=== PATIENT | female | born 1995 | race Caucasian/White ===

== ENCOUNTER 2021-08-29 05:15 | Observation (INO) ==
[2021-08-29] MEDS ORDERED: diphenhydrAMINE 50 MG/ML VIAL IV STA ×2 (05:39→06:52)
[2021-08-29] MEDS ORDERED: FAMOTIDINE 20MG IV PUSH 20 MG/5 ML SYR IV STA (05:39)
--- NOTE | 2021-08-29 05:45 | Emergency Department Note ---
History of Present Illness General Chief complaint: Allergic Reaction Stated complaint: CHEST PAIN W/ HIVES Time Seen by Provider: 08/29/21 05:28 Source: patient Mode of arrival: ambulatory Limitations: no limitations History of Present Illness Provider complaint: Allergic reaction Onset (ago): hour(s) Maximum Pain Intensity: 5 Treatments prior to arrival: other This is a 26-year-old female presents emergency department due to concern for al lergic reaction. Over the last 2 weeks patient has had intermittent urticaria and itching and has been seen in the emergency room. She was prescribed an EpiPen, is now into her second course of prednisone and taking Pepcid daily in addition to Claritin. Patient is scheduled to have a video appointment with an otolaryngology nurse on September 18. Patient states she woke up tonight and had facial swelling and a sense of throat tightness and trouble breathing so she took her EpiPen and came to the emergency room. Patient states she does feel mild chest discomfort at this time although believes the other symptoms are slowly improving. She states that is has been unclear what is contributing to her reactions. Family history of significant allergic reactions. No new medications. No change in personal hygiene products. She denies any recent illness or travel. Patient states she has been seen by her PCP and seen in the ER 3 times with progressively worsening symptoms. No fam hx of anaphylaxis. Pt seen during a time of high acuity and national emergency pandemic while wearing PPE. Home Medications Medication Instructions Recorded Confirmed Type buspirone 10 mg tablet 10 mg PO BID 08/21/21 08/29/21 History norgestimate 0.18 mg/0.215 mg/0.25 1 tab PO DAILY@1830 08/21/21 08/29/21 History mg-ethinyl estradiol 25 mcg tablet (Dbt-Ro-Rdnaezmy) prednisone 20 mg tablet 20 mg PO BID 08/21/21 08/29/21 History venlafaxine 150 mg 150 mg PO QAM 08/21/21 08/29/21 History capsule,extended release 24 hr epinephrine 0.3 mg/0.3 mL 0.3 mg IM Q4H PRN #2 ea 08/27/21 08/29/21 Rx injection, auto-injector (EpiPen 2-Lefty) famotidine 20 mg tablet (Pepcid AC) 20 mg PO BID 14 Days #28 tab 08/27/2108/17 Rx prednisone 20 mg tablet 60 mg PO DAILY 4 Days #12 tab 08/27/21 08/29/21 Rx Allergies Allergy/AdvReac Type Severity Reaction Status Date / Time No Known Allergies Allergy Unverified 08/29/21 06:40 Past Med/Surg History Medical History No significant past medical history Surgical History No significant past surgical history Social History Smoking Status: Never smoker Hx Alcohol Use: Yes Alcohol type: beer Hx Substance Use: No Preferred Language: Micronesian Communication Ability: Effective Public Health Veterinarian Required: No Beliefs That Will Affect Care: None marital status: Single Current Living Situation: Parent and Family current occupational status: employed Other Information That Helps Us Care for You: No Feels Safe at Home: Yes Safety Concerns: Feels Safe At This Time Assistive Devices: None Review of Systems A total of 10 systems reviewed and were otherwise negative All systems reviewed & are unremarkable except as noted in HPI & below Physical Exam Vital Signs Vital Signs - 24 hr 08/29/21 05:24 08/29/21 05:28 08/29/21 05:31 Temperature 36.5 C Temperature Source Oral Pulse Rate 117 H 114 H Pulse Rate [Apical] Pulse Rate from SpO2 Sensor 115 H Respiratory Rate 26 H 21 Respiratory Effort / Characteristics Non-Labored Spontaneous Short of Breath SOB on Exertion SOB on Exertion Respiratory Depth Normal Normal Respiratory Pattern Regular Regular Blood Pressure 116/79 Blood Pressure [Left Arm] Blood Pressure Mean 91 Blood Pressure Mean [Left Arm] Pulse Oximetry 100 100 Oxygen Delivery Method Room Air Room Air Sepsis Recent Fever Within 48 Hours No Sepsis New/Unexplained Change in Mental Status No Sepsis Action Taken by Nursing No Action Required Pulse Oximetry Post Tiitration 08/29/21 05:33 08/29/21 06:00 08/29/21 06:30 Temperature Temperature Source Pulse Rate 104 H 101 H Pulse Rate [Apical] 118 H Pulse Rate from SpO2 Sensor 102 H 103 H Respiratory Rate 20 13 18 Respiratory Effort / Characteristics Respiratory Depth Normal Respiratory Pattern Blood Pressure 103/64 98/63 L Blood Pressure [Left Arm] 119/79 Blood Pressure Mean 77 74 Blood Pressure Mean [Left Arm] 92 Pulse Oximetry 100 100 100 Oxygen Delivery Method Room Air Sepsis Recent Fever Within 48 Hours Sepsis New/Unexplained Change in Mental Status Sepsis Action Taken by Nursing Pulse Oximetry Post Tiitration 100 08/29/21 07:00 08/29/21 07:02 08/29/21 07:12 Temperature Temperature Source Pulse Rate 100 H 97 H Pulse Rate [Apical] 101 H Pulse Rate from SpO2 Sensor 99 H 95 H Respiratory Rate 17 24 18 Respiratory Effort / Characteristics Respiratory Depth Respiratory Pattern Blood Pressure 119/66 Blood Pressure [Left Arm] 119/66 Blood Pressure Mean 83 Blood Pressure Mean [Left Arm] 83 Pulse Oximetry 100 100 100 Oxygen Delivery Method Room Air Sepsis Recent Fever Within 48 Hours Sepsis New/Unexplained Change in Mental Status Sepsis Action Taken by Nursing Pulse Oximetry Post Tiitration 08/29/21 07:30 08/29/21 08:00 08/29/21 08:01 Temperature Temperature Source Pulse Rate 101 H 99 H Pulse Rate [Apical] 97 H Pulse Rate from SpO2 Sensor 102 H 97 H Respiratory Rate 20 25 H 22 Respiratory Effort / Characteristics Respiratory Depth Respiratory Pattern Blood Pressure 108/62 105/75 Blood Pressure [Left Arm] 105/75 Blood Pressure Mean 77 85 Blood Pressure Mean [Left Arm] 85 Pulse Oximetry 100 99 100 Oxygen Delivery Method Room Air Sepsis Recent Fever Within 48 Hours Sepsis New/Unexplained Change in Mental Status Sepsis Action Taken by Nursing Pulse Oximetry Post Tiitration 08/29/21 08:30 08/29/21 09:00 08/29/21 09:30 Temperature Temperature Source Pulse Rate 104 H 103 H 90 Pulse Rate [Apical] 101 H Pulse Rate from SpO2 Sensor 104 H 101 H 89 Respiratory Rate 18 23 22 Respiratory Effort / Characteristics Respiratory Depth Respiratory Pattern Blood Pressure 105/54 L 101/59 L 102/50 L Blood Pressure [Left Arm] 101/59 L Blood Pressure Mean 71 73 67 Blood Pressure Mean [Left Arm] 73 Pulse Oximetry 98 97 98 Oxygen Delivery Method Room Air Sepsis Recent Fever Within 48 Hours Sepsis New/Unexplained Change in Mental Status Sepsis Action Taken by Nursing Pulse Oximetry Post Tiitration 08/29/21 10:00 08/29/21 10:30 08/29/21 11:00 Temperature Temperature Source Pulse Rate 85 80 86 Pulse Rate [Apical] 87 Pulse Rate from SpO2 Sensor 87 81 86 Respiratory Rate 21 18 17 Respiratory Effort / Characteristics Respiratory Depth Respiratory Pattern Blood Pressure 99/59 L 103/57 L 97/59 L Blood Pressure [Left Arm] 99/59 L Blood Pressure Mean 72 72 71 Blood Pressure Mean [Left Arm] 72 Pulse Oximetry 97 97 98 Oxygen Delivery Method Room Air Sepsis Recent Fever Within 48 Hours Sepsis New/Unexplained Change in Mental Status Sepsis Action Taken by Nursing Pulse Oximetry Post Tiitration GENERAL: alert, well appearing, well nourished, no distress, non-toxic, no obvi ous facial swelling or facial urticaria EYE EXAM: normal conjunctiva, PERRL and EOM's grossly intact OROPHARYNX: no exudate, no erythema, lips, buccal mucosa, and tongue normal and mucous membranes are moist, no obvious lip or facial swelling, uvula midline NECK: supple, no nuchal rigidity, no adenopathy, non-tender, no stridor LUNGS: Clear to auscultation. Normal chest wall mechanics, no w/r/r, tachypnea, no increased work of breathing HEART: no murmurs, S1 normal and S2 normal ABDOMEN: abdomen soft, non-tender, normo-active bowel sounds, no masses, no rebound or guarding. BACK: Back is symmetrical on inspection and there is no deformity, no midline tenderness, no CVA tenderness. SKIN: No petechiae, no bruising, generalized urticaria noted sparing the face UPPER EXTREMITIES: upper extremities are grossly normal. FROM, nml pulses b/l. LOWER EXTREMITIES: No pitting edema. FROM, nml pulses b/l. NEURO EXAM: Normal sensorium, cranial nerves II-XII grossly intact, normal speech, no gross weakness of arms, no gross weakness of legs. Gross sensation intact. Course Course 0650: Patient states she is still symptomatic at this time. No significant improvement after initial medications. 0748: Pt states still no improvement in symptoms. Will give epi IM. Administered Medications Buspirone HCl (Buspirone 5 Mg Tab) 10 mg PO BID KHALIDA Stop: 09/28/21 20:59 Last Admin: 08/29/21 21:04 Dose: 10 mg Documented by: [id number] Cetirizine HCl (Cetirizine Hcl 10 Mg Tablet) 10 mg PO HS KHALIDA Stop: 09/28/21 20:59 Last Admin: 08/29/21 21:04 Dose: 10 mg Documented by: [id number] Famotidine (Famotidine 20 Mg Tab) 20 mg PO BID KHALIDA Stop: 09/28/21 20:59 Last Admin: 08/29/21 21:04 Dose: 20 mg Documented by: [id number] Hydrocortisone Sodium (Succinate 40 mg/ Syringe) 0.8 mls @ 4 mls/min IV Q8H KHALIDA Stop: 09/28/21 13:59 Last Admin: 08/29/21 21:04 Dose: 4 mls/min Documented by: [id number] Admin: 08/29/21 14:40 Dose: 4 mls/min Documented by: [id number] Miscellaneous (Uvi-Qj-Zuhwuqne -Patient's Own Oral Contraceptive) 1 ea PO QD KHALIDA Stop: 09/28/21 18:29 Last Admin: 08/29/21 17:38 Dose: 1 ea Documented by: [id number] Discontinued Medications Cetirizine HCl (Cetirizine Hcl 10 Mg Tablet) 10 mg PO NOW ONE Stop: 08/29/21 07:52 Last Admin: 08/29/21 07:57 Dose: 10 mg Documented by: [id number] Dexamethasone Sodium Phosphate (DexamethasonePf 10 Mg/Ml Vial) 10 mg IV NOW ONE Stop: 08/29/21 06:53 Last Admin: 08/29/21 07:00 Dose: 10 mg Documented by: [id number] Diphenhydramine HCl (Diphenhydramine 50 Mg/Ml Vial) 25 mg IV NOW STA Stop: 08/29/21 05:40 Last Admin: 08/29/21 05:47 Dose: 25 mg Documented by: [id number] Diphenhydramine HCl (Diphenhydramine 50 Mg/Ml Vial) 25 mg IV NOW STA Stop: 08/29/21 06:53 Last Admin: 08/29/21 06:59 Dose: 25 mg Documented by: [id number] Epinephrine HCl (Epinephrine Adult Auto-Inject 0.3 Mg Syr) 0.3 mg IM NOW STA Stop: 08/29/21 07:52 Last Admin: 08/29/21 07:58 Dose: 0.3 mg Documented by: [id number] Famotidine (Pepcid 20mg Iv Push) 20 mg in 5 mls @ 2.5 mls/min IV NOW STA Stop: 08/29/21 05:40 Last Admin: 08/29/21 05:47 Dose: 2.5 mls/min Documented by: [id number] Sodium Chloride (Nss 1000ml) 1,000 mls @ 250 mls/hr IV .Q4H KHALIDA Stop: 09/28/21 05:44 Last Admin: 08/29/21 13:20 Dose: Not Given Documented by: [id number] Infusion: 08/29/21 10:27 Dose: 0 mls/hr Documented by: [id number] Admin: 08/29/21 05:47 Dose: 250 mls/hr Documented by: [id number] Medical Decision Making Differential Diagnosis Differential diagnosis includes but is not limited to anaphylaxis, generalized allergic reaction, medication reaction, urticaria, contact dermatitis, scarlet fever, Sadler-Pancho syndrome, Toxic Epidermal necrolysis Medical Records Attestation: I reviewed the patient's medical records. Home Medications Current Medication List: was personally reviewed by me Laboratory Data Attestation: I reviewed the patient's lab results. Result diagrams: 08/29/21 08:23 08/29/21 08:23 Lab Results 08/29/21 08/29/21 08/29/21 Range/Units 08:23 08:23 08:23 WBC 12.08 H (4.8-10.8) K/uL RBC 4.19 L (4.2-5.4) M/uL Hgb 13.2 (12.0-16.0) g/dL Hct 39.3 (37-47) % MCV 93.8 (80-100) fL MCH 31.5 (25-34) pg MCHC 33.6 (32-36) g/dL RDW Std Deviation 46.4 H (36.4-46.3) fL RDW Coeff of Cosme 13.5 (11.5-14.5) % Plt Count 246 (130-400) K/uL MPV 10.0 (7.4-10.4) fL Immature Gran % (Auto) 0.2 % Neut % (Auto) 82.9 % Lymph % (Auto) 12.7 % [place] % (Auto) 4.1 % Eos % (Auto) 0.0 % Baso % (Auto) 0.1 % Neut # (Auto) 10.00 H (1.4-6.5) K/uL Lymph # (Auto) 1.54 (1.2-3.4) K/uL [place] # (Auto) 0.50 (0.11-0.59) K/uL Eos # (Auto) 0.00 (0-0.5) K/uL Baso # (Auto) 0.01 (0-0.2) K/uL Immature Gran # (Auto) 0.03 H (0.00-0.02) K/uL ESR (0-20) mm/hr Sodium 138 (136-145) mmol/L Potassium 3.6 (3.5-5.1) mmol/L Chloride 109 H (98-107) mmol/L Carbon Dioxide 24 (21-32) mmol/L Anion Gap 5 (3-11) BUN 14 (6-23) mg/dl Creatinine 0.73 (0.6-1.2) mg/dl Est Cr Clr Drug Dosing 113.1 ml/min Est GFR ( Amer) 129.9 ml/min Est GFR (Non-Af Amer) 112.1 ml/min BUN/Creatinine Ratio 19.2 (10-20) Glucose 110 H (70-99(Fasting)) mg/dl Calcium 7.9 L (8.5-10.1) mg/dl Total Bilirubin 0.3 (0.2-1.0) mg/dl AST 12 L (13-39) U/L ALT 10 (7-52) U/L Alkaline Phosphatase 32 L (34-104) U/L Troponin I High Sens 4.5 (0-14) pg/ml Total Protein 5.8 L (6.0-8.3) gm/dl Albumin 3.4 (3.4-5.0) gm/dl Globulin 2.4 L (2.5-4.0) gm/dl Albumin/Globulin Ratio 1.4 (0.9-2) HCG, Qual Negative (Negative) SARS-CoV-2 (PCR) (Negative) Influenza Type A (PCR) (Neg) Influenza Type B (PCR) (Neg) RSV (RT-PCR) (Neg) 08/29/21 08/29/21 Range/Units 08:23 08:32 WBC (4.8-10.8) K/uL RBC (4.2-5.4) M/uL Hgb (12.0-16.0) g/dL Hct (37-47) % MCV (80-100) fL MCH (25-34) pg MCHC (32-36) g/dL RDW Std Deviation (36.4-46.3) fL RDW Coeff of Cosme (11.5-14.5) % Plt Count (130-400) K/uL MPV (7.4-10.4) fL Immature Gran % (Auto) % Neut % (Auto) % Lymph % (Auto) % [place] % (Auto) % Eos % (Auto) % Baso % (Auto) % Neut # (Auto) (1.4-6.5) K/uL Lymph # (Auto) (1.2-3.4) K/uL [place] # (Auto) (0.11-0.59) K/uL Eos # (Auto) (0-0.5) K/uL Baso # (Auto) (0-0.2) K/uL Immature Gran # (Auto) (0.00-0.02) K/uL ESR 7 (0-20) mm/hr Sodium (136-145) mmol/L Potassium (3.5-5.1) mmol/L Chloride (98-107) mmol/L Carbon Dioxide (21-32) mmol/L Anion Gap (3-11) BUN (6-23) mg/dl Creatinine (0.6-1.2) mg/dl Est Cr Clr Drug Dosing ml/min Est GFR ( Amer) ml/min Est GFR (Non-Af Amer) ml/min BUN/Creatinine Ratio (10-20) Glucose (70-99(Fasting)) mg/dl Calcium (8.5-10.1) mg/dl Total Bilirubin (0.2-1.0) mg/dl AST (13-39) U/L ALT (7-52) U/L Alkaline Phosphatase (34-104) U/L Troponin I High Sens (0-14) pg/ml Total Protein (6.0-8.3) gm/dl Albumin (3.4-5.0) gm/dl Globulin (2.5-4.0) gm/dl Albumin/Globulin Ratio (0.9-2) HCG, Qual (Negative) SARS-CoV-2 (PCR) NEGATIVE (Negative) Influenza Type A (PCR) Negative (Neg) Influenza Type B (PCR) Negative (Neg) RSV (RT-PCR) Negative (Neg) Imaging Data Radiologist's Impression: Chest X-Ray 08/29/21 05:39 XR chest 1V portable HISTORY: 26 years-old Female chest pain acute atypical chest pain COMPARISON: None TECHNIQUE: AP view of the chest FINDINGS: The cardiomediastinal and hilar silhouettes are within normal limits. No pneumo thorax, pleural effusion, airspace consolidation or overt pulmonary edema. Bones of the chest appear grossly intact. Cholecystectomy. IMPRESSION: No acute process. ACT 112: Negative or not required by law. The above report was generated using voice recognition software. It may contain grammatical, syntax or spelling errors. Electronically signed by: Tyron Petty M.D. 08/29/2021 6:38 AM ECG Data Attestation: I personally reviewed and interpreted this ECG as follows: Indication: + chest pain Rate (beats per minute): 112 Rhythm: + sinus tachycardia ECG Intervals/blocks: + Normal QRS and + Normal QT ECG [place]: + Normal ECG ST segments: + Normal ST segments MDM Narrative An order was placed for continuous cardiac monitoring. The monitor shows a rate of _102_ with sinus tachycardia_ rhythm. This is a 26-year-old female who presents emergency department for the third time due to worsening allergic reaction/anaphylactic symptoms. Patient with complaints of throat tightness, difficulty breathing, and chest pain along with her diffuse urticaria. No obvious facial swelling or angioedema. Patient is already taking H2 and H1 blockers and steroids at home. Patient used her EpiPen prior to arrival. Despite additional medications here in the emergency room she did not have any significant improvement of symptoms and so a second dose of IM epi was given. Due to persistent symptoms requiring additional and ongoing treatment without marked improvement and no identifiable etiology at this time, I discussed additional inpatient evaluation management her, she and mother verbalized understanding and were in agreement with plan. Patient was afebrile and remained hemodynamically stable in the emergency room. Basic labs added as a precaution. Chest x-ray and EKG had been reassuring. I do not suspect occult cardiac or pulmonary etiology of her symptoms, I feel they are more likely to be related to her allergic reaction. Prior tryptase level during her first visit was negative. Patient has not yet been able to follow-up with allergy/immunolo gy. Impression & Plan Anaphylaxis, Urticaria, Allergic reaction Discharge Plan Visit Data Chief Complaint: Allergic Reaction Stated Complaint: CHEST PAIN W/ HIVES ED Provider: Diane Cornejo Discharge Problem: Anaphylaxis, Urticaria, Allergic reaction Patient Disposition: Admitted As Inpatient Discharge Instructions Interventions: ED Discharge Assessment Last Done: 08/29/21 12:20 Discharge Problem: Anaphylaxis Qualifiers: Encounter type: initial encounter Qualified Code(s): T78.2XXA - Anaphylactic shock, unspecified, initial encounter Allergic reaction Qualifiers: Encounter type: subsequent encounter Qualified Code(s): T78.40XD - Allergy, unspecified, subsequent encounter
[2021-08-29] MEDS: SODIUM CHLORIDE 0.9% 1000ML 1,000 ML IV SCH ×2 (05:47→13:20)
--- NOTE | 2021-08-29 06:39 | XRay Report ---
XR chest 1V portable HISTORY: 26 years-old Female chest pain acute atypical chest pain COMPARISON: None TECHNIQUE: AP view of the chest FINDINGS: The cardiomediastinal and hilar silhouettes are within normal limits. No pneumothorax, pleural effusi on, airspace consolidation or overt pulmonary edema. Bones of the chest appear grossly intact. Cholec ystectomy. IMPRESSION: No acute process. ACT 112: Negative or not required by law. The above report was generated using voice recognition software. It may contain grammatical, syntax o r spelling errors. Electronically signed by: Tyron Petty M.D. 08/29/2021 6:38 AM
[2021-08-29] MEDS ORDERED: dexAMETHasone**PF** 10 MG/ML VIAL IV ONE (06:52)
[2021-08-29] MEDS ORDERED: CETIRIZINE HCL 10 MG TABLET PO ONE (07:51)
[2021-08-29] MEDS ORDERED: EPINEPHrine ADULT AUTO-INJECT 0.3 MG SYR IM STA (07:51)
[2021-08-29 08:42] LABS: Basophils # (auto) 0.01 K/uL (0-0.2); Basophils % (auto) 0.1 %; Hematocrit (blood only) 39.3 % (37-47); Hemoglobin 13.2 g/dL (12.0-16.0); Immature Granulocytes # (auto) 0.03 K/uL (0.00-0.02); Immature Granulocytes % (auto) 0.2 %; Lymphocytes # (auto) 1.54 K/uL (1.2-3.4); Lymphocytes % (auto) 12.7 %; Mean Corpuscular Hemoglobin 31.5 pg (25-34); Mean Corpuscular Hgb Conc 33.6 g/dL (32-36); Mean Corpuscular Volume 93.8 fL (80-100); Monocytes % (auto) 4.1 %; Neutrophils % (auto) 82.9 %; Platelet Count 246 K/uL (130-400); RDW Coefficient of Variation 13.5 % (11.5-14.5); RDW Standard Deviation 46.4 fL (36.4-46.3); Red Blood Count 4.19 M/uL (4.2-5.4); White Blood Count 12.08 K/uL (4.8-10.8)
[2021-08-29 09:13] LABS: Albumin Globulin Ratio 1.4 (0.9-2); Albumin Level 3.4 gm/dl (3.4-5.0); BUN Creatinine Ratio 19.2 (10-20); Bilirubin,Total 0.3 mg/dl (0.2-1.0); Calcium 7.9 mg/dl (8.5-10.1); Creatinine Clr Calc Pharmacy 113.1 ml/min; Est GFR (African American) 129.9 ml/min; Est GFR (Non-African American) 112.1 ml/min; Globulin 2.4 gm/dl (2.5-4.0); Potassium 3.6 mmol/L (3.5-5.1); Total Protein 5.8 gm/dl (6.0-8.3)
[2021-08-29 09:16] LABS: Pregnancy Test, Serum Negative (Negative)
[2021-08-29 09:17] LABS: Troponin I High Sensitivity 4.5 pg/ml (0-14)
[2021-08-29 09:21] LABS: Influenza A virus by PCR Negative (Neg); Influenza B virus by PCR Negative (Neg); RSV by PCR Negative (Neg); SARS CoV2 RNA(COVID-19) InHosp NEGATIVE (Negative)
--- NOTE | 2021-08-29 11:18 | History & Physical Report ---
Date of Service August 29, 2021 Assessment & Plan (1) Urticaria: Plan: Generalized, persistent, for 2 weeks now despite being on steroids, H1, H2 lillie, also required epi pen. No etiology identified despite extensive history. Currently does not have angioedema or anaphylactic symptoms. Had been evaluated by PCPx2 and ED visit x3. Has an stainless steel finisher appointment for 09/01. Required epi pen x2, decadron, H1 and H2 lillie in ED with some improvement. Will continue solumedrol, H1 and H2 lillie with epipen prn in case anaphylactic symptoms. Discussed with her when to let us know. CBC, CMP unrevealing. Recent tryptase negative. HCG negative. Will not pursue aggressive work up at this time other than basic work up- ESR, IgE, CBC with diff, CMP. Further work up per her stainless steel finisher. (2) Allergic reaction: Plan: DVT prophylaxis- Ambulation. 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 States symptoms ongoing for past 2 weeks. She was working in her garden when her symptoms started (she had worked there before without any issues). Initially pruritis only, after few days she had generalized hives sparing mucus membranes (oral mucosa or private areas). She has been seen by her PCP twice and has been on 2 short course of prednisone (40 mg daily followed by 60 mg) along with claritin, benadryl and pepcid. Her symptoms and hives would reduce when she was on those meds but never went away completely. She has been in the ED twice for the same reason (08/21 and 08/25) for similar complaints and was discharged on epipen which she has used. Denies any new medications, detergent, personal care product, insect bites, infection, travel, food or anything new recently. No similar episodes before. No family history of allergic symptoms. She did have face and throat swelling during recent ED visit but no anaphylaxis symptoms and no recurrence since. She is to see stainless steel finisher on Friday 09/01. In the ED, she was given epipen x2 along with benadryl, decadron, pepcid and zyrtec due to persistent symptoms. She was feeling better but still had significant hives in her extremities during my encounter. Denies any chest pain, wheezing, lightheadedness, dizziness, hoarseness, dyspnea or dysphagia. Mom at bedside. Allergies Allergy/AdvReac Type Severity Reaction Status Date / Time No Known Allergies Allergy Unverified 08/29/21 06:40 Home Medications Medication Instructions Recorded Confirmed Type buspirone 10 mg tablet 10 mg PO BID 08/21/21 08/29/21 History norgestimate 0.18 mg/0.215 mg/0.25 1 tab PO DAILY@1830 08/21/21 08/29/21 History mg-ethinyl estradiol 25 mcg tablet (Tqy-Yi-Cujmknrb) prednisone 20 mg tablet 20 mg PO BID 08/21/21 08/29/21 History venlafaxine 150 mg 150 mg PO QAM 08/21/21 08/29/21 History capsule,extended release 24 hr epinephrine 0.3 mg/0.3 mL 0.3 mg IM Q4H PRN #2 ea 08/27/21 08/29/21 Rx injection, auto-injector (EpiPen 2-Lefty) famotidine 20 mg tablet (Pepcid AC) 20 mg PO BID 14 Days #28 tab 08/27/21 08/29/21 Rx prednisone 20 mg tablet 60 mg PO DAILY 4 Days #12 tab 08/27/21 08/29/21 Rx Past Med/Surg History Medical History No significant past medical history Surgical History No significant past surgical history Social History Smoking Status: Never smoker Preferred Language: French marital status: Single current occupational status: employed Feels Safe at Home: Yes Review of Systems Review of Systems: All systems reviewed & are unremarkable except as noted in Subjective Physical Exam Physical Exam: General: Sitting comfortably in bed, not in distress, on room air HEENT: EOMI, ARMANDO, MMM Chest: Clear breath sounds bilaterally, no wheezes or crackles CVS: Regular rate and rhythm, normal heart sounds, no murmur Abdomen: Soft, non tender, not distended, normal bowel sounds Neuro: Awake, alert, oriented, conversing well, non focal Extremities: No cyanosis, clubbing or edema Skin: Generalized urticaria more in extremities than trunk, sparing face and mucus membrane Results & Data Results & Data ([facility]) Vital Signs (Past 12 Hours) Vital Signs Temp Pulse Pulse Resp BP BP Pulse Ox 08/29/21 10:00 87 18 99/59 L 97 08/29/21 09:00 101 H 22 101/59 L 97 08/29/21 08:01 97 H 22 105/75 100 08/29/21 07:12 101 H 18 119/66 100 08/29/21 05:33 118 H 20 119/79 100 08/29/21 05:24 36.5 C 117 H 26 H 116/79 100 Laboratory Results Short CBC 08/29/21 Range/Units 08:23 WBC 12.08 H (4.8-10.8) K/uL Hgb 13.2 (12.0-16.0) g/dL Hct 39.3 (37-47) % Plt Count 246 (130-400) K/uL BMP 08/29/21 08:23 Sodium 138 Potassium 3.6 Chloride 109 H Carbon Dioxide 24 BUN 14 Creatinine 0.73 Glucose 110 H Calcium 7.9 L Liver Function 08/29/21 Range/Units 08:23 Total Bilirubin 0.3 (0.2-1.0) mg/dl AST 12 L (13-39) U/L ALT 10 (7-52) U/L Alkaline Phosphatase 32 L (34-104) U/L Albumin 3.4 (3.4-5.0) gm/dl Diagnostic Findings Chest X-Ray 08/29/21 05:39 XR chest 1V portable HISTORY: 26 years-old Female chest pain acute atypical chest pain COMPARISON: None TECHNIQUE: AP view of the chest FINDINGS: The cardiomediastinal and hilar silhouettes are within normal limits. No pneumothorax, pleural effusion, airspace consolidation or overt pulmonary edema. Bones of the chest appear grossly intact. Cholecystectomy. IMPRESSION: No acute process. ACT 112: Negative or not required by law. The above report was generated using voice recognition software. It may contain grammatical, syntax or spelling errors. Electronically signed by: Tyron Petty M.D. 08/29/2021 6:38 AM Code Status & VTE Plan VTE Prophylaxis Plan VTE Prophylaxis will be ordered: Yes (1) Allergic reaction Encounter type: subsequent encounter Qualified Code(s): T78.40XD - Allergy, unspecified, subsequent encounter
[2021-08-29] MEDS ORDERED: EPINEPHrine ADULT AUTO-INJECT 0.3 MG SYR IM PRN (12:30)
[2021-08-29] MEDS ORDERED: diphenhydrAMINE 50 MG/ML VIAL IV PRN (12:30)
[2021-08-29] MEDS ORDERED: HYDROCORTISONE SOD SUCCINATE 100 MG/2 ML VIAL IV SCH (14:00)
[2021-08-29] MEDS: HYDROCORTISONE SOD 40 MG in SYRINGE 0 ML IV SCH ×2 (14:40→21:04)
[2021-08-29] MEDS ORDERED: ETHINYL ESTRADIOL PO SCH (18:30)
[2021-08-29] MEDS ORDERED: NORGESTIMATE PO SCH (18:30)
[2021-08-29] MEDS ORDERED: CETIRIZINE HCL 10 MG TABLET PO SCH (21:00)
[2021-08-29] MEDS: FAMOTIDINE 20 MG TAB PO SCH (21:04)
[2021-08-29] MEDS: busPIRone 5 MG TAB PO SCH (21:04)
--- NOTE | 2021-08-29 22:07 | Electrocardiogram Report ---
Test Reason : Blood Pressure : / mmHG Vent. Rate : 112 BPM Atrial Rate : 112 BPM P-R Int : 112 ms QRS Dur : 084 ms QT Int : 304 ms P-R-T Axes : 043 058 021 degrees QTc Int : 414 ms Poor data quality, interpretation may be adversely affected Sinus tachycardia Possible Left atrial enlargement Nonspecific T wave abnormality Abnormal ECG No previous ECGs available Confirmed by Ector Covarrubias ([id number]) on 08/29/2021 10:06:52 PM Referred By: REFERRED SELF Confirmed By:Ector Covarrubias
[2021-08-30 06:16] LABS: Albumin Globulin Ratio 1.4 (0.9-2); Albumin Level 3.3 gm/dl (3.4-5.0); BUN Creatinine Ratio 14.9 (10-20); Bilirubin,Total 0.3 mg/dl (0.2-1.0); C Reactive Protein 5.92 mg/dl (0-0.5); Calcium 8.4 mg/dl (8.5-10.1); Creatinine Clr Calc Pharmacy 123.3 ml/min; Est GFR (African American) 138.6 ml/min; Est GFR (Non-African American) 119.6 ml/min; Globulin 2.4 gm/dl (2.5-4.0); Potassium 4.1 mmol/L (3.5-5.1); Total Protein 5.7 gm/dl (6.0-8.3)
[2021-08-30] MEDS: HYDROCORTISONE SOD 40 MG in SYRINGE 0 ML IV SCH (06:21)
[2021-08-30 06:33] LABS: Hematocrit (blood only) 38.2 % (37-47); Immature Granulocytes # (auto) 0.01 K/uL (0.00-0.02); Immature Granulocytes % (auto) 0.1 %; Lymphocytes # (auto) 2.08 K/uL (1.2-3.4); Lymphocytes % (auto) 19.2 %; Mean Corpuscular Hemoglobin 31.9 pg (25-34); Mean Corpuscular Volume 93.9 fL (80-100); Monocytes # (auto) 0.68 K/uL (0.11-0.59); Monocytes % (auto) 6.3 %; Neutrophils # (auto) 8.08 K/uL (1.4-6.5); Neutrophils % (auto) 74.4 %; Platelet Count 246 K/uL (130-400); Red Blood Count 4.07 M/uL (4.2-5.4); White Blood Count 10.85 K/uL (4.8-10.8)
[2021-08-30] MEDS: FAMOTIDINE 20 MG TAB PO SCH (08:11)
[2021-08-30] MEDS: busPIRone 5 MG TAB PO SCH (08:11)
[2021-08-30] MEDS ORDERED: VENLAFAXINE HCL XR 150 MG CAPXR PO SCH (09:00)
--- NOTE | 2021-08-30 13:49 | Discharge Summary ---
Date of Service August 30, 2021 Admission HPI Per Admitting Provider 26 year old otherwise healthy female (works here as respiratory therapist) presented to the ED with worsening generalized urticaria along with some chest tightness and wheezing. States symptoms ongoing for past 2 weeks. She was working in her garden when her symptoms started (she had worked there before without any issues). Initially pruritis only, after few days she had generalized hives sparing mucus membranes (oral mucosa or private areas). She has been seen by her PCP twice and has been on 2 short course of prednisone (40 mg daily followed by 60 mg) along with claritin, benadryl and pepcid. Her symptoms and hi ves would reduce when she was on those meds but never went away completely. She has been in the ED twice for the same reason (08/21 and 08/25) for similar complaints and was discharged on epipen which she has used. Denies any new medications, detergent, personal care product, insect bites, infection, travel, food or anything new recently. No similar episodes before. No family history of allergic symptoms. She did have face and throat swelling during recent ED visit but no anaphylaxis symptoms and no recurrence since. She is to see data deliverables manager on Friday 09/01. In the ED, she was given epipen x2 along with benadryl, decadron, pepcid and zyrtec due to persistent symptoms. She was feeling better but still had significant hives in her extremities during my encounter. Denies any chest pain, wheezing, lightheadedness, dizziness, hoarseness, dyspnea or dysphagia. Mom at bedside. Admission Exam Per Admitting Provider General: Sitting comfortably in bed, not in distress, on room air HEENT: EOMI, ARMANDO, MMM Chest: Clear breath sounds bilaterally, no wheezes or crackles CVS: Regular rate and rhythm, normal heart sounds, no murmur Abdomen: Soft, non tender, not distended, normal bowel sounds Neuro: Awake, alert, oriented, conversing well, non focal Extremities: No cyanosis, clubbing or edema Skin: Generalized urticaria more in extremities than trunk, sparing face and mucus membrane Principal Diagnosis Acute urticaria Discharge Exam Constitutional + well hydrated; no acute distress Eyes PERRL, conjunctivae normal, anicteric sclerae ENMT external ear and nose normal, oropharynx normal Respiratory normal respiratory effort, lungs clear to auscultation Cardiovascular RRR, no murmur, no edema Gastrointestinal (Abdomen) normal bowel sounds, soft, nontender, no hepatosplenomegaly Musculoskeletal no cyanosis or clubbing, extremities motor strength 5/5 Skin Erythematous patches on legs, forearms and back appear to be clearing Neurologic PERRL, EOMI, accommodation nl, no face palsy, no dysarthria Psychiatric A+Ox3, euthymic affect Discharge Data Allergies Allergy/AdvReac Type Severity Reaction Status Date / Time No Known Allergies Allergy Unverified 08/29/21 06:40 Hospital Course (1) Urticaria: (2) Allergic reaction: Patient presented with generalized urticaria involving extremities, trunk. No involvement of face or mucous membrane Based on hx, no obvious precipitant Denied any new medication/supplements. Reported change in home laundry detergent recently and has since changed back to original detergent. She also reported recently visiting a garden which she usually visits. However, she started having pruritus prior to the date she visited the garden She reported h/o seasonal allergies Reported some chest tightness prior to presentation which has since resolved. Patient received epinephrine shot on presentation. Was started on IV hydrocortisone 40mg q8h, cetirizine and famotidine Reviewed pictures patient took of herself over the past 2 weeks. She did have facial and lip involvement in the past. Patient's pruritus has resolved. Rash clearing Patient reported she will like to be discharged home today. Patient had been on prednisone 60mg prior to presentation. Patient advised to take remaining 2 day dose of prednisone 60mg today and tomorrow. From Wednesday, she will start tapering dose of 40mg prednisone daily for 4 days and then 20mg daily for 4 days. Patient has an appointment with Allergologist on Wednesday Advised to continue cetirizine and famotidine. She reported she still has famotidine and epinephrine pen. IgE pending Total Time Total Time Spent Total Time Spent (In Minutes): 40 Total Time Includes: Examination of the Patient, Discharge Planning and Medication Reconciliation Discharge Plan Discharge Items Patient Disposition: Home - Self-Care Reason For Visit: URTICARIA Discharge Diagnosis: Acute Urticaria Activity: Resume your previous activity Non-emergency contact: Primary Care Provider and Specialist Call non-emergency contact if: you have any medication questions and your symptoms worsen Follow-up/Referrals: Berna Choi DO [Primary Care Provider] - Diet: Regular Addtl Attending Provider Instructions: Ms Diane. You came to the hospital due to worsening generalized itchy urticarial rash associated with some chest tightness. You were treated with injection steroids, pepcid and cetirizine. The itchiness is resolved and rash is improving. Please take your remaining home dose of prednisone 60mg tab today and tomorrow. Then starting Wednesday09/01/21 take 40mg prednisone daily for 4 days then taper to 20mg daily for another 4 days and then stop. Please continue your pepcid and cetirizine Please ensure follow up with the Allergologist and your Primary Doctor as we discussed. It was a pleasure taking care of you. Pending Studies at Discharge: Yes (IgE) Stand-Alone Forms: My [facility] [employer], Smoking Cessation Medications and DC Order Prescriptions: New cetirizine 10 mg Tablet 10 mg PO DAILY Qty: 7 RF: 0 Continued venlafaxine 150 mg capsule,extended release 24hr 150 mg PO QAM RF: 0 buspirone 10 mg tablet 10 mg PO BID RF: 0 norgestimate-ethinyl estradiol [Yjk-Vb-Xaavxjaf] 0.18/0.215/0.25 mg-25 mcg tablet 1 tab PO DAILY@1830 RF: 0 epinephrine [EpiPen 2-Lefty] 0.3 mg/0.3 mL auto-injector 0.3 mg IM Q4H PRN (Reason: anaphylaxis) Qty: 2 RF: 0 famotidine [Pepcid AC] 20 mg tablet 20 mg PO BID 14 Days Qty: 28 RF: 0 prednisone 20 mg tablet 60 mg PO DAILY 2 Days Qty: 6 RF: 0 Changed prednisone 20 mg tablet See Rx Instructions .ROUTE .COMPLEX Qty: 12 RF: 0 Discontinued prednisone 20 mg tablet 20 mg PO BID RF: 0 Discharge Orders: Discharge Order (Routine); Ordered 08/30/21 Ordered By: Jackelyn Cornejo Admission Data Admit Date/Time: 08/29/21 11:12 Attending Provider: Jackelyn Cornejo I. Admit Provider: Jordi Stokes Primary Care Provider: Berna Choi Other Providers: Jordi Stokes Other Interventions: Discharge Summary Assessment (RN) Last Done: 08/30/21 13:49
== END 2021-08-30 14:47 | disposition home or self-care (01) | DRG 607 ==
LOC: ED 05:15 → INTOOBSV 11:12 → SUATTDRO 11:12 → 1E 11:12

== ENCOUNTER 2024-11-29 05:35 | Inpatient (IN) ==
--- NOTE | 2024-11-20 09:17 | Anesthesiology Consultation ---
Date of Service November 20, 2024 Assessment & Plan (1) Encounter for pre-operative examination: Chart Review Chart Review: entry level initiated -Infectious Disease screening: Per PAT nursing assessment on 11/20/24. No known i nfectious disease contacts in past 10 days or current infectious disease symptoms. No recent travel outside the country. Robotic Assisted Lap Myomectomy 12/25/22= Done under GA with Grade 2 view with MAC #3. ETT 7.0. History Surgery Operation Date: 11/29/24 07:30 Proposed Procedures p Primary Section in LD - Brad Larson MD Height/Weight Height: 5 ft 5 in Weight: 81.647 kg Allergies Allergy/AdvReac Type Severity Reaction Status Date / Time Tide laundry detergent Allergy Severe Anaphylaxis Uncoded 11/20/24 08:44 Medications Home Medications Medication Instructions Recorded Confirmed Last Taken epinephrine 0.3 mg/0.3 mL 0.3 mg (0.3 mL) IM Q4H PRN 08/27/21 11/20/24 08/28/21 injection, auto-injector (EpiPen anaphylaxis #2 ea 2-Lefty) vits no.124-ferrous fum 1 tab PO DAILY 09/04/24 11/20/24 09/03/24 27 mg iron-folic acid 800 mcg tablet ( Vitamin) lactobacillus combination no.4 3 3,000 mmu cells PO DAILY 11/20/24 11/20/24 Unknown billion cell capsule (Probiotic) Past Medical History Medical History Acid reflux stable History of anxiety History of depression History of postoperative nausea and vomiting History of urticaria Admitted to [facility] 08/2021- no obvious precipitant- has Epi pen in med list Hx of anaphylaxis reaction to possibly r/t tide laundry detergent Past Family History Family History Other No family history of adverse response to anesthesia Past Surgical History Surgical History History of cholecystectomy History of esophagogastroduodenoscopy (EGD) Hx of myomectomy [place] teeth removed Social History Smoking Status: Never smoker Do You Dip or Chew Tobacco: No Hx Alcohol Use: Yes (not currently) Alcohol type: beer alcohol intake frequency: holidays/special occasions only Hx Substance Use: No substance use type: does not use
[2024-11-29] MEDS: LACTATED RINGER'S 1,000 ML IV SCH (05:53)
[2024-11-29 06:13] LABS: Hematocrit (blood only) 38.4 % (37.0-47.0); Hemoglobin 13.5 g/dl (12.0-16.0); Immature Granulocytes # (auto) 0.16 K/uL (0.01-0.20); Immature Granulocytes % (auto) 1.5 %; Mean Corpuscular Hemoglobin 32.5 pg (25.0-34.0); Mean Corpuscular Volume 92.3 fL (80.0-100.0); Platelet Count 142 K/uL (130-400); RDW Standard Deviation 45.5 fL (36.4-46.3); Red Blood Count 4.16 M/uL (4.20-5.40); White Blood Count 10.42 K/ul (4.8-10.8)
[2024-11-29] MEDS: ACETAMINOPHEN 500 MG TAB PO SCH (06:32)
[2024-11-29] MEDS ORDERED: LACTATED RINGER'S 1,000 ML IV SCH ×2 (06:45→09:00)
[2024-11-29] MEDS ORDERED: MoRPHine SULFATE PF 1 MG/ML 10 ML AMP/VIAL ONE (06:46)
[2024-11-29] MEDS ORDERED: PHENYLEPHRINE HCL 10 MG/ML VIAL ONE (06:47)
[2024-11-29] MEDS ORDERED: OXYTOCIN 10 UNITS/ML VIAL ONE ×3 (06:50)
[2024-11-29] MEDS: CITRIC ACID/SODIUM CITRATE 15 ML UDC PO SCH (07:04)
[2024-11-29] MEDS: cefOXitin 2,000 MG in DEXTROSE 5 % MINI-B 50 ML IV SCH (07:36)
--- NOTE | 2024-11-29 07:46 | History & Physical Bridge Note ---
Date of Service November 29, 2024 History & Physical Bridge Note I have examined the patient, reviewed the History & Physical and in the interval since the performance of the History & Physical I have noted the following changes of clinical significance: no changes noted
[2024-11-29] MEDS ORDERED: NALOXONE HCL 0.4 MG/1 ML VIAL/CARP IV PRN (07:56)
[2024-11-29] MEDS ORDERED: NALOXONE HCL 1 MG in SODIUM CHLORIDE 0.9% 1,000 ML IV PRN (07:56)
[2024-11-29] MEDS ORDERED: MoRPHine SULFATE PF 1 MG/ML 10 ML AMP/VIAL INT SPINAL ONE (07:56)
[2024-11-29] MEDS ORDERED: diphenhydrAMINE 50 MG/ML VIAL IV PRN (07:56)
[2024-11-29] MEDS ORDERED: ONDANSETRON INJ 2 MG/ML 2 ML VIAL IV PRN (07:56)
[2024-11-29] MEDS ORDERED: HYDROmorphone INJ 0.5 MG/0.5 ML SYR IV PRN (07:56)
[2024-11-29] MEDS ORDERED: DROPERIDOL 5 MG/2 ML VIAL IV PRN (07:56)
[2024-11-29] MEDS ORDERED: LACTATED RINGER'S 500 ML IV PRN (07:56)
[2024-11-29] MEDS ORDERED: NALBUPHINE HCL INJ 10 MG/ML AMP IV PRN (07:56)
[2024-11-29] MEDS ORDERED: NALOXONE HCL 0.08 MG in SYRINGE 1.8 ML IV PRN (07:56)
[2024-11-29] MEDS ORDERED: SODIUM CHLORIDE 0.9% 1,000 ML IV SCH (08:00)
[2024-11-29] MEDS ORDERED: DC INTRASPINAL MORPHINE SCH (08:00)
[2024-11-29] MEDS ORDERED: NO NARCOTICS OR SEDATIVES SCH (08:00)
[2024-11-29] MEDS ORDERED: ONDANSETRON INJ 2 MG/ML 2 ML VIAL ONE (08:04)
[2024-11-29] MEDS ORDERED: HYDROCORTISONE ACETATE 25 MG SUPP PR PRN (08:48)
[2024-11-29] MEDS ORDERED: BENZOCAINE 20% SPRY 85 APPLN/85 GM CAN EXT PRN (08:48)
[2024-11-29] MEDS ORDERED: DIPHTHER/TETAN/PERTUS Vaccine (Tdap, Adol/Adult) 0.5mL IM ONE (08:48)
[2024-11-29] MEDS ORDERED: CALCIUM CARBONATE 500 MG CHEWABLE TAB PO PRN (08:48)
[2024-11-29] MEDS ORDERED: SENNA 8.6 MG TAB PO PRN (08:48)
[2024-11-29] MEDS ORDERED: MAGNESIUM HYDROXIDE SUSP 30 ML UDC PO PRN (08:48)
--- NOTE | 2024-11-29 08:59 | Post Operative Brief Note ---
Immediate Post Op Note Date of Surgery November 29, 2024 Pre & Post Diagnosis Operation Date: 11/29/24 07:30 Pre-Op Diagnosis: Primary Section in LD Post-Op Diagnosis: Primary Section in LD I identified the patient and participated in the time-out.: Yes Procedure Operation Date: 11/29/24 07:30 Actual Procedures p Primary Section for delivery of live male at 0807. - Brad Larson MD Surgeon Brad Larson MD Bench Repair Technician MALENA Borrero Estimated Blood Loss 493 (QBL) Findings Consistent with Post-Op Diagnosis live male Apgars 9/9 weight 8 lbs. Fluids 600 ml. Specimens placenta Drains Gray Catheter (Inserted after spinal anesthesia. Draining clear yellow urine. ) Anesthesia Type Spinal Complications none Disposition Accompanied Patient To Recovery: Yes Overlapping Procedure I was present for: the critical portions of procedure. I was immediately available: during the entire case. Back up surgeon: was not required during procedure.
[2024-11-29] MEDS: KETOROLAC 30 MG/ML VIAL IV SCH (09:15)
--- NOTE | 2024-11-29 11:11 | Anesthesiology Progress Note ---
Date of Service November 29, 2024 Anesthesia Post Procedure Vital Signs Vital Signs: Temp Pulse Resp BP Pulse Ox Pulse Ox O2 Del Method 11/29/24 11:00 68 111/55 L 11/29/24 10:57 65 98 11/29/24 10:52 65 97 11/29/24 10:47 71 98 11/29/24 10:42 65 98 11/29/24 10:37 66 98 11/29/24 10:32 64 99 11/29/24 10:30 16 11/29/24 10:29 67 108/62 11/29/24 10:27 66 99 11/29/24 10:22 64 99 11/29/24 10:21 72 99/58 L 11/29/24 10:17 74 98 11/29/24 10:12 68 98 11/29/24 10:11 63 100/58 L 11/29/24 10:07 70 98 11/29/24 10:02 66 98 11/29/24 10:01 67 93/55 L 11/29/24 09:57 66 99 11/29/24 09:52 66 98 11/29/24 09:51 65 99/50 L 11/29/24 09:50 16 11/29/24 09:47 72 98 11/29/24 09:42 70 99 11/29/24 09:40 18 11/29/24 09:40 69 87/50 L 11/29/24 09:37 74 85/49 L 99 11/29/24 09:32 69 99 11/29/24 09:30 18 11/29/24 09:27 98 11/29/24 09:27 71 11/29/24 09:27 79 81/46 L 11/29/24 09:24 66 80/45 L 11/29/24 09:23 96 11/29/24 09:23 68 87/52 L 11/29/24 09:22 80 98 11/29/24 09:20 66 18 80/45 L 11/29/24 09:17 69 182/125 H 100 11/29/24 09:12 72 99 11/29/24 09:10 18 11/29/24 09:07 71 98 11/29/24 09:02 74 99 11/29/24 09:01 69 91/51 L 11/29/24 09:00 18 11/29/24 08:57 76 100 11/29/24 08:56 65 89 L 11/29/24 08:52 65 99 11/29/24 08:47 36.4 C L 18 11/29/24 08:47 67 90/54 L 98 11/29/24 05:57 37.0 C 82 18 113/65 11/29/24 05:49 37.0 C 18 Room Air O2 Del Method 11/29/24 11:00 11/29/24 10:57 11/29/24 10:52 11/29/24 10:47 11/29/24 10:42 11/29/24 10:37 11/29/24 10:32 11/29/24 10:30 11/29/24 10:29 11/29/24 10:27 11/29/24 10:22 11/29/24 10:21 11/29/24 10:17 11/29/24 10:12 11/29/24 10:11 11/29/24 10:07 11/29/24 10:02 11/29/24 10:01 11/29/24 09:57 11/29/24 09:52 11/29/24 09:51 11/29/24 09:50 11/29/24 09:47 11/29/24 09:42 11/29/24 09:40 11/29/24 09:40 11/29/24 09:37 11/29/24 09:32 11/29/24 09:30 11/29/24 09:27 11/29/24 09:27 11/29/24 09:27 11/29/24 09:24 11/29/24 09:23 Room Air 11/29/24 09:23 11/29/24 09:22 11/29/24 09:20 11/29/24 09:17 11/29/24 09:12 11/29/24 09:10 11/29/24 09:07 11/29/24 09:02 11/29/24 09:01 11/29/24 09:00 11/29/24 08:57 11/29/24 08:56 11/29/24 08:52 11/29/24 08:47 11/29/24 08:47 11/29/24 05:57 11/29/24 05:49 Notes Mental Status: alert / awake / arousable Patient Amnestic to Procedure: Yes Nausea / Vomiting: adequately controlled Pain: adequately controlled Airway Patency, RR, SpO2: stable & adequate BP & HR: stable & adequate Hydration State: stable & adequate Neuraxial Anesthesia: was administered and sensory block is resolving Anesthetic Complications: no major complications apparent
--- NOTE | 2024-11-29 11:56 | Operative Report ---
Post Operative Report Pre & Post Diagnosis Operation Date: 11/29/24 07:30 Pre-Op Diagnosis: Primary Section in Post-Op Diagnosis: Primary Section in I identified the patient and participated in the time-out.: Yes Procedure Operation Date: 11/29/24 07:30 Actual Procedures p Primary Section for delivery of live male infant at 0807. - Brad Larson MD Surgeon Brad Larson MD Sausage Stringer MALENA Borrero Quantitative Blood Loss (QBL) 493 ml. Findings Consistent with Post-Op Diagnosis live male Apgars 9/9 weight 8 lbs. Fluids LR 600 ml. Specimens placenta Drains none Anesthesia Type Spinal Complications none Disposition Accompanied Patient To Recovery: Yes Indications history of myomectomy Description of Procedure Under satisfactory spinal anesthesia the patient was prepped and draped in usual sterile fashion. A timeout was called antibiotics were given preop. A low Pfannenstiel incision was then made extending the incision through the fascia down into the peritoneal cavity and upon opening the peritoneal cavity. The reflection of the bladder flap was then sharply dissected down with Metzenbaum scissors. The bladder blade was then placed incision on the lower uterine segment was made incision was widened in the AP diameter. And the amniotic sac was nicked with an Allis clamp and it was found to be clear. Delivery of the baby from the vertex presentation with the aid of fundal pressure resulted and a live male after 1 minute cord delay clamping was accomplished with Apgars of 9 and 9 weight was 8 pounds. Cord blood was obtained and then the placenta was then delivered spontaneously intact the interior of the uterus after being exteriorized were cleaned with a lap pad the initial sponge needle instrument count were found to be correct the uterus was closed in a double layer closure with 0 Vicryl suture in a continuous interlocking fashion followed by a second infiltrating suture. Tubes ovaries bilaterally were found to be within normal limits the site of the previous myomectomy was noted without any evidence of any adhesions or scarring noted. After the initial sponge, needle and instrument count were found to be correct the uterus was placed back in the normal anatomical position. The lower uterine segment was then inspected no active bleeding was noted. The fascia was then reapproximated with 0 Vicryl suture in a continuous fashion. The subcuticular tissue layer was closed with interrupted 3-0 plain suture and the skin was then reapproximated with 4-0 Monocryl subcuticular technique. Steri-Strips were then applied to the wound the QBL was 493 mL. Fluids were 600 mL. The final sponge needle and instrument count was found to be correct the patient was then placed supine on a stretcher and she was taken to recovery room in stable condition. I attest to the content of the Intraoperative Record and any orders documented therein. Any exceptions are noted below. Please note that Elizabeth GUY was needed to provide assistance for retraction,delivery of the head and closure of the uterus and abdomen.
[2024-11-29] MEDS: OXYTOCIN 20 UNITS/LR 1,002 ML IV SCH (12:09)
[2024-11-29] MEDS: SIMETHICONE 80 MG CHEW PO SCH (13:10)
[2024-11-29] MEDS: ACETAMINOPHEN 325 MG TAB PO SCH (15:16)
[2024-11-29] MEDS: DOCUSATE SODIUM 100 MG CAP PO SCH (20:53)
[2024-11-30] MEDS ORDERED: diphenhydrAMINE 50 MG/ML VIAL IV PRN (01:56)
[2024-11-30] MEDS ORDERED: diphenhydrAMINE Capsule 25 MG CAP PO PRN (01:56)
[2024-11-30] MEDS ORDERED: HYDROmorphone INJ 0.5 MG/0.5 ML SYR IV PRN (01:56)
[2024-11-30] MEDS ORDERED: PROMETHAZINE 12.5 MG/50.5 ML BAG IV PRN (01:56)
[2024-11-30] MEDS ORDERED: ONDANSETRON INJ 2 MG/ML 2 ML VIAL IV PRN (01:56)
[2024-11-30 06:39] LABS: Hematocrit (blood only) 32.9 % (37.0-47.0); Hemoglobin 11.6 g/dl (12.0-16.0); Immature Granulocytes # (auto) 0.13 K/uL (0.01-0.20); Immature Granulocytes % (auto) 1.0 %; Mean Corpuscular Hemoglobin 33.0 pg (25.0-34.0); Mean Corpuscular Volume 93.7 fL (80.0-100.0); Platelet Count 132 K/uL (130-400); RDW Standard Deviation 45.7 fL (36.4-46.3); Red Blood Count 3.51 M/uL (4.20-5.40); White Blood Count 12.49 K/ul (4.8-10.8)
[2024-11-30] MEDS: IBUPROFEN 600 MG TAB PO SCH (08:42)
[2024-11-30] MEDS: PRENATAL VITAMIN 1 TAB PO SCH (08:42)
[2024-11-30] MEDS: FERROUS SULFATE 325 MG TAB PO SCH (08:42)
[2024-11-30] MEDS ORDERED: KETOROLAC 30 MG/ML VIAL IV PRN (08:48)
--- NOTE | 2024-11-30 10:06 | Obstetrical Progress Note ---
Date of Service November 30, 2024 Assessment & Plan Admission and Anticipated Discharge Date Admission Date: November 29, 2024 Subjective Patient is seen and examined. She feels well, no complaints. Pain is under control with oral meds. Ambulating without dizziness Voiding without difficulty Tolerating regular diet with out N&V Flatus + BM NEG Bleeding is minimal No fever/ chills/ CP/ SOB/ N&V/ Leg pain Breast feeding without problems Vital Signs Temp Pulse Resp BP Pulse Ox O2 Del Method 11/30/24 07:00 36.7 C 73 18 118/73 98 Room Air 11/30/24 04:30 36.8 C 68 16 120/79 98 Room Air 11/30/24 01:58 16 98 11/30/24 01:00 16 98 11/30/24 00:20 36.7 C 75 16 106/70 98 Room Air 11/30/24 00:00 16 98 11/29/24 23:05 16 97 Lab Results 11/29/24 11/30/24 Range/Units 05:56 05:53 WBC 10.42 12.49 H (4.8-10.8) K/ul RBC 4.16 L 3.51 L (4.20-5.40) M/uL Hgb 13.5 11.6 L (12.0-16.0) g/dl Hct 38.4 32.9 L (37.0-47.0) % MCV 92.3 93.7 (80.0-100.0) fL MCH 32.5 33.0 (25.0-34.0) pg MCHC 35.2 35.3 (32.0-36.0) g/dL RDW Std Deviation 45.5 45.7 (36.4-46.3) fL RDW Coeff of Cosme 13.3 13.4 (11.5-14.5) % Plt Count 142 132 (130-400) K/uL MPV 10.2 10.7 (9.4-12.4) fL Immature Gran % (Auto) 1.5 1.0 % Neut % (Auto) 68.9 74.6 % Lymph % (Auto) 19.3 15.1 % Story % (Auto) 8.3 6.7 % Eos % (Auto) 1.4 2.2 % Baso % (Auto) 0.6 0.4 % Neut # (Auto) 7.18 H 9.30 H (1.40-6.50) K/uL Lymph # (Auto) 2.01 1.89 (1.20-3.40) K/uL Story # (Auto) 0.86 H 0.84 H (0.11-0.59) K/uL Eos # (Auto) 0.15 0.28 (0.00-0.50) K/uL Baso # (Auto) 0.06 0.05 (0.00-0.20) K/uL Immature Gran # (Auto) 0.16 0.13 (0.01-0.20) K/uL Treponema pallidum Ab Negative (Negative) Blood Type A Positive Antibody Screen NEGATIVE PE: General: Alert, orientedx3, NAD CVS: S1S2 RRR Lungs; CTAB Abd: soft, NT, ND, BS+, fundus firm, below Umbilicus Incision: Clean, dry, intact Perineum intact, Lochia rubra minimal Ext; NT, no edema AP: 29 yo s/p C Section, pod# 1 VSS Afebrile doing well Continue routine postop care Encourage ambulation, PO intake All questions were answered D/C home tomorrow Results & Data Vital Signs (Past 12 Hours) Vital Signs Temp Pulse Resp BP Pulse Ox O2 Del Method 11/30/24 07:00 36.7 C 73 18 118/73 98 Room Air 11/30/24 04:30 36.8 C 68 16 120/79 98 Room Air 11/30/24 01:58 16 98 11/30/24 01:00 16 98 11/30/24 00:20 36.7 C 75 16 106/70 98 Room Air 11/30/24 00:00 16 98 11/29/24 23:05 16 97
[2024-11-30 19:05] VITALS: TEMP 98.1
[2024-12-01 06:35] LABS: Hematocrit (blood only) 34.8 % (37.0-47.0); Hemoglobin 11.9 g/dl (12.0-16.0)
[2024-12-01 07:38] VITALS: BP 118/74; PULSE 74; RESP 18; O2SAT 99
--- NOTE | 2024-12-01 08:51 | Obstetrical Progress Note ---
Date of Service December 01, 2024 Assessment & Plan Admission and Anticipated Discharge Date Admission Date: November 29, 2024 Subjective abdomen soft and non tender incision is clean and dry no calf tenderness ambulating well vaginal bleeding scant hgb 11.9 Results & Data Vital Signs (Past 12 Hours) Vital Signs Temp Pulse Resp BP Pulse Ox O2 Del Method 12/01/24 07:25 36.7 C 74 18 118/74 99 Room Air 11/30/24 23:05 36.7 C 75 16 99/64 L 97 Room Air
--- NOTE | 2024-12-01 09:02 | Discharge Summary ---
Date of Service December 01, 2024 Discharge Data Consultations 11/29/24 05:34 Consult Anesthesiology Stat Procedures Performed Operation Date: 11/29/24 07:30 Actual Procedures p Primary Section for delivery of live male infant at 0807. - Brad Larson MD
[2024-12-01] MEDS: IBUPROFEN 600 MG TAB PO PRN (09:03)
--- NOTE | 2024-12-01 09:05 | Discharge Summary ---
Date of Service December 01, 2024 Admission HPI Per Admitting Provider Patient was admitted status post removal of large myoma. Patient was admitted at 39 weeks gestation. Underwent primary low segment section without any difficulty. Preoperative hemoglobin was 13.5. Postoperative hemoglobin was 11.9. Patient remained afebrile throughout her postoperative course. Second postoperative day patient was ambulating well eating well passing gas. Patient requested discharge. Patient was given the usual postoperative instructions. He was given a prescription of Percocet. Assessment Discharge Data Consultations 11/29/24 05:34 Consult Anesthesiology Stat Procedures Performed Operation Date: 11/29/24 07:30 Actual Procedures p Primary Section for delivery of live male infant at 0807. - Brad Larson MD
[2024-12-01] MEDS ORDERED: ACETAMINOPHEN 325 MG TAB PO PRN (14:48)
== END 2024-12-01 13:15 | disposition home or self-care (01) | DRG 788 ==
LOC: 4S1 05:35 → EDSTATUS 07:30 → 4E2 11:29